=== PATIENT | female | born 1975 ===

== ENCOUNTER 2017-05-16 01:36 | Inpatient (IN) ==
[2017-05-16] MEDS ORDERED: GLUCAGON 1 MG VIAL IM PRN (01:41)
[2017-05-16] MEDS ORDERED: DEXTROSE 50% 25 GM/50 ML VIAL IV PRN (01:41)
[2017-05-16] MEDS ORDERED: ZALEPLON 5 MG CAPSULE PO PRN (01:41)
[2017-05-16] MEDS ORDERED: ONDANSETRON 4 MG/2 ML VIAL IV PRN (01:41)
[2017-05-16] MEDS: SODIUM CHLORIDE 0.9% 1,000 ML IV SCH ×3 (04:41→15:57)
[2017-05-16] MEDS ORDERED: traZODone 50 MG TABLET PO PRN (05:33)
[2017-05-16] MEDS ORDERED: clonazePAM 0.5 MG TABLET PO PRN (05:33)
[2017-05-16] MEDS ORDERED: HYOSCYAMINE 0.125 MG TABLET SL PRN (05:33)
[2017-05-16] MEDS: MORPHINE 2 MG/1 ML SYRINGE IV PRN ×3 (05:35→21:54)
[2017-05-16 06:03] LABS: Basophils % 0.3 % (0.0-0.8); Eosinophils # 0.2 10*3/uL (0.0-0.87); Eosinophils % 1.5 % (0.00-10.9); Hematocrit 30.1 VOL% (35.7-47.0); Hemoglobin 10.5 GM/DL (12.0-16.0); Immature Granulocytes % 0.5 %; Immature Granulocytes Absolute 0.06 #; Lymphocytes # 2.7 10*3/uL (1.4-4.0); Lymphocytes % 24.6 % (21.3-54.2); Mean Corpuscular HGB Conc 34.9 GM/DL (32-36); Mean Corpuscular Hemoglobin 30 PG (27-34); Mean Corpuscular Volume 85.5 FL (87-102); Mean Platelet Volume 10.9 FL (9.6-12.0); Monocytes # 0.8 10*3/uL (0.11-0.8); Monocytes % 7.1 % (1.7-12.7); Neutrophils # 7.3 10*3/uL (1.4-7.4); Platelet Count 138 T/CUMM (130-400); Red Blood Count 3.52 MC/CUMM (3.8-5.5); Red Cell Distribution Width 14.1 % (9.3-17.3)
[2017-05-16 06:27] LABS: Giant Platelets Few; Hypochromasia 1+; Platelet Estimate Normal
[2017-05-16 06:28] LABS: Ovalocytes Slight
[2017-05-16 06:41] LABS: Alanine Aminotransferase 22 U/L (13-56); Albumin 2.2 G/DL (3.4-5.0); Alkaline Phosphatase 114 U/L (45-117); Aspartate Amino Transferase 99 U/L (0-37); Bilirubin,Total < 0.39 MG/DL (0.2-1.0); Blood Urea Nitrogen 12 MG/DL (7-18); Calcium 7.5 MG/DL (8.5-10.1); Glucose 172 MG/DL (74-106); Osmolality,Calculated 280.5 MOS/KG (273-304); Potassium 3.8 MMOL/L (3.5-5.1); Sodium 139 MMOL/L (136-145); Total Protein 5.4 G/DL (6.4-8.3)
[2017-05-16] MEDS: FLUoxetine 20 MG CAPSULE PO SCH (09:38)
[2017-05-16] MEDS: INSULIN LISPRO 100 UNIT/ML SUBCUT SCH ×3 (09:38→16:57)
[2017-05-16] MEDS: PANTOPRAZOLE 40 MG TABLET PO SCH ×2 (09:38→21:49)
[2017-05-16] MEDS: MEROPENEM 1,000 MG in SYRINGE 1 EACH IV SCH ×2 (10:01→15:54)
[2017-05-16 11:00] LABS: Apearance,Urine CLOUDY (Clear); Bilirubin,Urine Negative (Negative); Blood, Urine Small mg/dL (Negative); Glucose,Urine (UA) >=500 mg/dL (Negative); Ketones,Urine Negative (Negative); Mucus,Urine Occasional /LPF (Occasional); Nitrite,Urine Negative (Negative); Protein,Urine >=500 MG/DL; RBC,Urine 16 /HPF (0-4); Squamous Epithelial Cell,Urine Occasional /HPF (0-10); Urine Color Amber (Yellow); Urine Specific Gravity 1.021 (1.001-1.035); WBC,Urine 1153 /HPF (0-6)
[2017-05-16] MEDS: CLINDAMYCIN INJ 600 MG in PREMIX 1 EACH IV SCH ×2 (13:03→19:42)
[2017-05-16] MEDS ORDERED: SEVOFLURANE 1 UNIT/15 MINUTE INH ONE (14:27)
[2017-05-16] MEDS ORDERED: MIDAZOLAM 2 MG/2 ML VIAL ONE (14:27)
[2017-05-16] MEDS ORDERED: PROPOFOL 200 MG/20 ML VIAL IV ONE (14:27)
[2017-05-16] MEDS ORDERED: KETOROLAC 30 MG/1 ML VIAL ONE (14:27)
[2017-05-16] MEDS ORDERED: ONDANSETRON 4 MG/2 ML VIAL ONE (14:27)
[2017-05-16] MEDS ORDERED: fentaNYL 100 MCG/2 ML VIAL ONE ×2 (14:27→14:33)
[2017-05-16] MEDS ORDERED: INSULIN GLARGINE 100 UNIT/ML SUBCUT SCH (21:00)
[2017-05-16] MEDS: LATANOPROST 0.005% OPH SOLN 2.5 ML BOTTLE BOTH EYES SCH (21:49)
[2017-05-16] MEDS: AMITRIPTYLINE 25 MG TABLET PO SCH (21:49)
[2017-05-17] MEDS: SODIUM CHLORIDE 0.9% 1,000 ML IV SCH ×4 (00:45→20:08)
[2017-05-17] MEDS: MEROPENEM 1,000 MG in SYRINGE 1 EACH IV SCH ×3 (00:45→17:37)
[2017-05-17] MEDS: CLINDAMYCIN INJ 600 MG in PREMIX 1 EACH IV SCH ×3 (04:01→20:08)
[2017-05-17 05:31] LABS: Basophils % 0.2 % (0.0-0.8); Eosinophils # 0.1 10*3/uL (0.0-0.87); Eosinophils % 1.4 % (0.00-10.9); Hemoglobin 10.1 GM/DL (12.0-16.0); Immature Granulocytes % 0.6 %; Immature Granulocytes Absolute 0.06 #; Lymphocytes # 1.4 10*3/uL (1.4-4.0); Lymphocytes % 13.9 % (21.3-54.2); Mean Corpuscular HGB Conc 32.6 GM/DL (32-36); Mean Corpuscular Hemoglobin 29 PG (27-34); Mean Corpuscular Volume 89.6 FL (87-102); Mean Platelet Volume 11.3 FL (9.6-12.0); Monocytes # 0.7 10*3/uL (0.11-0.8); Neutrophils # 7.5 10*3/uL (1.4-7.4); Neutrophils % 76.9 % (38.7-73.9); Platelet Count 135 T/CUMM (130-400); Red Blood Count 3.46 MC/CUMM (3.8-5.5); Red Cell Distribution Width 14.2 % (9.3-17.3); White Blood Count 9.8 T/CUMM (4-12)
[2017-05-17 05:55] LABS: Calcium 7.3 MG/DL (8.5-10.1); Osmolality,Calculated 284.1 MOS/KG (273-304); Potassium 3.8 MMOL/L (3.5-5.1)
[2017-05-17] MEDS: MORPHINE 2 MG/1 ML SYRINGE IV PRN ×2 (09:17→22:23)
[2017-05-17] MEDS: PANTOPRAZOLE 40 MG TABLET PO SCH ×2 (09:19→20:07)
[2017-05-17] MEDS: FLUoxetine 20 MG CAPSULE PO SCH (09:19)
[2017-05-17] MEDS: INSULIN LISPRO 100 UNIT/ML SUBCUT SCH ×3 (09:19→17:29)
[2017-05-17] MEDS: AMITRIPTYLINE 25 MG TABLET PO SCH (20:08)
[2017-05-17] MEDS: LATANOPROST 0.005% OPH SOLN 2.5 ML BOTTLE BOTH EYES SCH (20:08)
[2017-05-17] MEDS ORDERED: INSULIN GLARGINE 100 UNIT/ML SUBCUT SCH (21:00)
[2017-05-18] MEDS: MEROPENEM 1,000 MG in SYRINGE 1 EACH IV SCH ×2 (00:51→09:47)
[2017-05-18] MEDS: CLINDAMYCIN INJ 600 MG in PREMIX 1 EACH IV SCH ×2 (03:15→12:28)
[2017-05-18 05:11] LABS: Basophils % 0.5 % (0.0-0.8); Eosinophils # 0.2 10*3/uL (0.0-0.87); Eosinophils % 2.6 % (0.00-10.9); Hematocrit 31.5 VOL% (35.7-47.0); Hemoglobin 10.1 GM/DL (12.0-16.0); Immature Granulocytes % 0.4 %; Immature Granulocytes Absolute 0.03 #; Lymphocytes # 2.3 10*3/uL (1.4-4.0); Lymphocytes % 29.7 % (21.3-54.2); Mean Corpuscular HGB Conc 32.1 GM/DL (32-36); Mean Corpuscular Hemoglobin 29 PG (27-34); Mean Corpuscular Volume 89.7 FL (87-102); Mean Platelet Volume 11.3 FL (9.6-12.0); Monocytes # 0.7 10*3/uL (0.11-0.8); Monocytes % 8.4 % (1.7-12.7); Neutrophils # 4.5 10*3/uL (1.4-7.4); Neutrophils % 58.4 % (38.7-73.9); Platelet Count 141 T/CUMM (130-400); Red Blood Count 3.51 MC/CUMM (3.8-5.5); Red Cell Distribution Width 14.4 % (9.3-17.3); White Blood Count 7.7 T/CUMM (4-12)
[2017-05-18 05:42] LABS: Calcium 7.6 MG/DL (8.5-10.1); Osmolality,Calculated 290.3 MOS/KG (273-304); Potassium 4.3 MMOL/L (3.5-5.1)
[2017-05-18] MEDS: SODIUM CHLORIDE 0.9% 1,000 ML IV SCH ×2 (06:25→11:18)
[2017-05-18] MEDS: MORPHINE 2 MG/1 ML SYRINGE IV PRN (07:15)
[2017-05-18] MEDS: FLUoxetine 20 MG CAPSULE PO SCH (09:45)
[2017-05-18] MEDS: PANTOPRAZOLE 40 MG TABLET PO SCH (09:45)
[2017-05-18] MEDS: INSULIN LISPRO 100 UNIT/ML SUBCUT SCH ×2 (09:46→12:27)
[2017-05-18 13:16] VITALS: BP 122/78
== END 2017-05-18 15:10 | disposition home or self-care (01) | DRG 394 ==
LOC: N.3E 03:24 → SUATTDRO 03:24
PROVIDERS: ADMIT Hospitalist

== ENCOUNTER 2017-12-31 21:13 | Inpatient (IN) ==
[2017-12-31] MEDS ORDERED: fentaNYL 100 MCG/2 ML VIAL IV STA (22:29)
[2017-12-31] MEDS ORDERED: PROMETHAZINE 25 MG/1 ML VIAL IM PRN (23:21)
[2017-12-31] MEDS ORDERED: NICOTINE 21 MG/24 HR PATCH TRANSDERM PRN (23:21)
[2017-12-31] MEDS ORDERED: diphenhydrAMINE CAP 25 MG CAPSULE PO PRN (23:21)
[2017-12-31] MEDS ORDERED: fentaNYL 100 MCG/2 ML VIAL IV PRN (23:21)
[2017-12-31] MEDS ORDERED: DEXTROSE 50% 25 GM/50 ML VIAL IV PRN (23:31)
[2017-12-31] MEDS ORDERED: GLUCAGON 1 MG VIAL IM PRN (23:31)
[2018-01-01 00:10] LABS: Basophils % 0.3 % (0.0-0.8); Eosinophils # 0.2 10*3/uL (0.0-0.87); Eosinophils % 1.4 % (0.00-10.9); Hematocrit 33.9 VOL% (35.7-47.0); Hemoglobin 11.2 GM/DL (12.0-16.0); Immature Granulocytes % 0.5 %; Immature Granulocytes Absolute 0.06 #; Lymphocytes # 1.9 10*3/uL (1.4-4.0); Lymphocytes % 16.1 % (21.3-54.2); Mean Corpuscular Hemoglobin 30 PG (27-34); Mean Corpuscular Volume 90.2 FL (87-102); Mean Platelet Volume 11.8 FL (9.6-12.0); Monocytes # 1.2 10*3/uL (0.11-0.8); Monocytes % 9.8 % (1.7-12.7); Neutrophils # 8.4 10*3/uL (1.4-7.4); Neutrophils % 71.9 % (38.7-73.9); Platelet Count 137 T/CUMM (130-400); Red Blood Count 3.76 MC/CUMM (3.8-5.5); Red Cell Distribution Width 12.6 % (9.3-17.3); White Blood Count 11.7 T/CUMM (4-12)
[2018-01-01 00:41] LABS: Calcium 7.6 MG/DL (8.5-10.1); Potassium 3.6 MMOL/L (3.5-5.1)
[2018-01-01] MEDS: ONDANSETRON 4 MG/2 ML VIAL IV PRN ×2 (01:37→14:03)
[2018-01-01] MEDS: MORPHINE 4 MG/1 ML VIAL IV PRN ×6 (01:39→23:25)
[2018-01-01] MEDS: INSULIN GLARGINE 100 UNIT/ML SUBCUT SCH ×2 (01:42→21:04)
[2018-01-01] MEDS: SODIUM CHLORIDE 0.9% 1,000 ML IV SCH ×5 (01:43→23:28)
[2018-01-01] MEDS: INSULIN REGULAR 100 UNIT/ML SUBCUT SCH ×5 (01:43→21:04)
[2018-01-01] MEDS ORDERED: INFLUENZA VIRUS VACCINE 0.5 ML SYRINGE IM ONE (02:15)
[2018-01-01] MEDS: VANCOMYCIN INJ 750 MG in SODIUM CHLORIDE 0.9% 250 ML IV SCH ×2 (02:38→13:58)
[2018-01-01 06:24] LABS: Basophils % 0.4 % (0.0-0.8); Eosinophils # 0.2 10*3/uL (0.0-0.87); Eosinophils % 1.7 % (0.00-10.9); Hematocrit 31.8 VOL% (35.7-47.0); Hemoglobin 10.4 GM/DL (12.0-16.0); Immature Granulocytes % 0.5 %; Immature Granulocytes Absolute 0.06 #; Lymphocytes # 1.6 10*3/uL (1.4-4.0); Mean Corpuscular HGB Conc 32.7 GM/DL (32-36); Mean Corpuscular Hemoglobin 29 PG (27-34); Mean Corpuscular Volume 89.1 FL (87-102); Mean Platelet Volume 12.2 FL (9.6-12.0); Monocytes # 1.2 10*3/uL (0.11-0.8); Neutrophils # 8.2 10*3/uL (1.4-7.4); Neutrophils % 72.4 % (38.7-73.9); Platelet Count 146 T/CUMM (130-400); Red Blood Count 3.57 MC/CUMM (3.8-5.5); Red Cell Distribution Width 12.6 % (9.3-17.3); White Blood Count 11.3 T/CUMM (4-12)
[2018-01-01 06:46] LABS: Albumin 1.9 G/DL (3.4-5.0); Bilirubin,Total 0.6 MG/DL (0.2-1.0); Osmolality,Calculated 292.7 MOS/KG (273-304); Potassium 3.5 MMOL/L (3.5-5.1); Total Protein 5.8 G/DL (6.4-8.3)
[2018-01-01] MEDS ORDERED: clonazePAM 0.5 MG TABLET PO PRN (09:00)
[2018-01-01] MEDS: FLUoxetine 20 MG CAPSULE PO SCH (09:27)
[2018-01-01] MEDS: PANTOPRAZOLE 40 MG VIAL IV SCH ×2 (09:28→21:01)
[2018-01-01] MEDS ORDERED: traZODone 50 MG TABLET PO PRN (09:30)
[2018-01-01] MEDS ORDERED: HYOSCYAMINE 0.125 MG TABLET SL PRN (09:30)
[2018-01-01] MEDS ORDERED: LIDOCAINE 1%/EPI INJ 20 ML VIAL ONE (10:27)
[2018-01-01] MEDS ORDERED: BUPIVACAINE MPF 0.25% /EPI 30 ML VIAL ONE (10:27)
[2018-01-01] MEDS ORDERED: PANTOPRAZOLE 40 MG VIAL IV ONE (11:24)
[2018-01-01] MEDS ORDERED: INSULIN LISPRO 100 UNIT/ML SUBCUT SCH (11:30)
[2018-01-01] MEDS ORDERED: MIDAZOLAM 2 MG/2 ML VIAL ONE (12:02)
[2018-01-01] MEDS ORDERED: ONDANSETRON 4 MG/2 ML VIAL ONE ×2 (12:02→12:33)
[2018-01-01] MEDS ORDERED: fentaNYL 100 MCG/2 ML VIAL ONE (12:02)
[2018-01-01] MEDS ORDERED: ROCURONIUM 100 MG/10 ML VIAL IV ONE (12:03)
[2018-01-01] MEDS ORDERED: SUCCINYLCHOLINE 200 MG/10 ML VIAL ONE (12:03)
[2018-01-01] MEDS ORDERED: MORPHINE 10 MG/1 ML VIAL ONE (12:17)
[2018-01-01] MEDS: MORPHINE 10 MG/1 ML VIAL IV PRN ×2 (12:17→12:25)
[2018-01-01] MEDS ORDERED: ONDANSETRON 4 MG/2 ML VIAL IV PRN (12:36)
[2018-01-01] MEDS ORDERED: HYDROmorphone 2 MG/1 ML VIAL IV PRN (13:09)
[2018-01-01 16:24] LABS: Apearance,Urine Slightly Hazy (Clear); Bacteria,Urine Occasional /HPF (Few); Bilirubin,Urine Negative (Negative); Blood, Urine Small mg/dL (Negative); Glucose,Urine (UA) Negative (Negative); Ketones,Urine 5 mg/dL (Negative); Mucus,Urine Occasional /LPF (Occasional); Nitrite,Urine Negative (Negative); Protein,Urine 30 MG/DL; RBC,Urine <1 /HPF (0-4); Squamous Epithelial Cell,Urine Occasional /HPF (0-10); Urine Color Yellow (Yellow); Urine Specific Gravity 1.008 (1.001-1.035); WBC,Urine 5 /HPF (0-6)
[2018-01-01] MEDS ORDERED: AMITRIPTYLINE 25 MG TABLET PO SCH (21:00)
[2018-01-01] MEDS ORDERED: INSULIN GLARGINE 100 UNIT/ML SUBCUT SCH (21:00)
[2018-01-01] MEDS ORDERED: LATANOPROST 0.005% OPH SOLN 2.5 ML BOTTLE BOTH EYES SCH (21:00)
[2018-01-02] MEDS: VANCOMYCIN INJ 750 MG in SODIUM CHLORIDE 0.9% 250 ML IV SCH ×2 (02:20→15:31)
[2018-01-02] MEDS: MORPHINE 4 MG/1 ML VIAL IV PRN ×2 (06:30→12:11)
[2018-01-02] MEDS: ONDANSETRON 4 MG/2 ML VIAL IV PRN ×2 (06:36→12:16)
[2018-01-02] MEDS: INSULIN REGULAR 100 UNIT/ML SUBCUT SCH ×2 (08:26→15:17)
[2018-01-02] MEDS: FLUoxetine 20 MG CAPSULE PO SCH (08:27)
[2018-01-02] MEDS: PANTOPRAZOLE 40 MG VIAL IV SCH (08:28)
[2018-01-02 16:19] VITALS: BP 133/86
== END 2018-01-02 16:25 | disposition home or self-care (01) | DRG 264 ==
LOC: EDBD → EDUNIT# → N.ED 21:13 → N.EDINP 23:21 → N.3E 01-01 00:40

== ENCOUNTER 2018-01-29 06:07 | Inpatient (IN) ==
[2018-01-29] MEDS ORDERED: THIAMINE INJ 100 MG, FOLIC ACID INJ 1 MG, MAGNESIUM SULF INJ 2 GM, MULTIVITAMIN INJ 10 ... IV ONE (06:44)
[2018-01-29 07:09] LABS: Apearance,Urine CLEAR (Clear); Bacteria,Urine Occasional /HPF (Few); Bilirubin,Urine Negative (Negative); Blood, Urine Small mg/dL (Negative); Glucose,Urine (UA) >=500 mg/dL (Negative); Ketones,Urine 80 mg/dL (Negative); Mucus,Urine Occasional /LPF (Occasional); Nitrite,Urine Negative (Negative); Protein,Urine 100 MG/DL; RBC,Urine 1 /HPF (0-4); Squamous Epithelial Cell,Urine Occasional /HPF (0-10); Urine Color Yellow (Yellow); Urine Specific Gravity 1.012 (1.001-1.035); Urine Urobilinogen < 2.0 EU/DL (0.2-1.0); WBC,Urine 2 /HPF (0-6)
[2018-01-29 07:11] LABS: Basophils % 0.3 % (0.0-0.8); Eosinophils # 0.2 10*3/uL (0.0-0.87); Eosinophils % 1.8 % (0.00-10.9); Hematocrit 31.1 VOL% (35.7-47.0); Hemoglobin 9.7 GM/DL (12.0-16.0); Immature Granulocytes % 0.8 %; Immature Granulocytes Absolute 0.08 #; Lymphocytes # 2.7 10*3/uL (1.4-4.0); Lymphocytes % 27.2 % (21.3-54.2); Mean Corpuscular HGB Conc 31.2 GM/DL (32-36); Mean Corpuscular Hemoglobin 28 PG (27-34); Mean Corpuscular Volume 90.7 FL (87-102); Mean Platelet Volume 11.5 FL (9.6-12.0); Monocytes # 0.8 10*3/uL (0.11-0.8); Neutrophils % 61.9 % (38.7-73.9); Platelet Count 135 T/CUMM (130-400); Red Blood Count 3.43 MC/CUMM (3.8-5.5); Red Cell Distribution Width 13.4 % (9.3-17.3); White Blood Count 9.8 T/CUMM (4-12)
[2018-01-29 07:31] LABS: Albumin 2.7 G/DL (3.4-5.0); Bilirubin,Total 0.5 MG/DL (0.2-1.0); Osmolality,Calculated 284.5 MOS/KG (273-304); Potassium 3.6 MMOL/L (3.5-5.1); Total Protein 7.1 G/DL (6.4-8.3)
[2018-01-29] MEDS ORDERED: BUPIVACAINE MPF 0.25% /EPI 30 ML VIAL ONE (08:06)
[2018-01-29] MEDS ORDERED: LIDOCAINE 2% TOP JELLY 20 ML VIAL INTRAURETH ONE (08:06)
[2018-01-29] MEDS ORDERED: ENOXAPARIN 40 MG/0.4 ML SYRINGE SUBCUT SCH (09:00)
[2018-01-29] MEDS ORDERED: INFLUENZA VIRUS VACCINE 0.5 ML SYRINGE IM ONE (10:00)
[2018-01-29] MEDS ORDERED: GLUCAGON 1 MG VIAL IM PRN (10:33)
[2018-01-29] MEDS ORDERED: traZODone 50 MG TABLET PO PRN (10:33)
[2018-01-29] MEDS ORDERED: DEXTROSE 50% 25 GM/50 ML VIAL IV PRN (10:33)
[2018-01-29] MEDS ORDERED: clonazePAM 0.5 MG TABLET PO PRN (10:33)
[2018-01-29] MEDS ORDERED: PROMETHAZINE 25 MG/1 ML VIAL IM PRN (10:33)
[2018-01-29] MEDS ORDERED: HYOSCYAMINE 0.125 MG TABLET SL PRN (10:33)
[2018-01-29] MEDS ORDERED: ONDANSETRON 4 MG/2 ML VIAL IV PRN (10:33)
[2018-01-29] MEDS: HYDROmorphone 2 MG/1 ML VIAL IV PRN ×2 (11:39→20:07)
[2018-01-29] MEDS: PANTOPRAZOLE 40 MG TABLET PO SCH ×2 (12:00→21:27)
[2018-01-29] MEDS: FLUoxetine 20 MG CAPSULE PO SCH (12:01)
[2018-01-29] MEDS: SULFAMETHOX/TRIMETHOPRIM 800-160 MG TABLET PO SCH ×2 (12:01→21:27)
[2018-01-29] MEDS: INSULIN REGULAR 100 UNIT/ML SUBCUT SCH ×3 (12:02→21:31)
[2018-01-29] MEDS ORDERED: PROPOFOL 200 MG/20 ML VIAL IV ONE (14:11)
[2018-01-29] MEDS ORDERED: fentaNYL 100 MCG/2 ML VIAL ONE (14:11)
[2018-01-29] MEDS ORDERED: MIDAZOLAM 2 MG/2 ML VIAL ONE ×2 (14:11→14:17)
[2018-01-29] MEDS ORDERED: SODIUM CHLORIDE 0.9% 250 ML IV ONE (14:11)
[2018-01-29] MEDS ORDERED: chlordiazePOXIDE 10 MG CAPSULE PO PRN (14:22)
[2018-01-29] MEDS: NICOTINE 14 MG/24 HR PATCH TRANSDERM SCH (16:38)
[2018-01-29] MEDS: LACTATED RINGERS 1,000 ML IV SCH ×2 (17:12→20:09)
[2018-01-29] MEDS ORDERED: INSULIN GLARGINE 100 UNIT/ML SUBCUT SCH (21:00)
[2018-01-29] MEDS: AMITRIPTYLINE 25 MG TABLET PO SCH (21:27)
[2018-01-29] MEDS: INSULIN GLARGINE 100 UNIT/ML SUBCUT SCH (21:31)
[2018-01-29] MEDS: LATANOPROST 0.005% OPH SOLN 2.5 ML BOTTLE BOTH EYES SCH (21:35)
[2018-01-30] MEDS: LACTATED RINGERS 1,000 ML IV SCH ×3 (02:05→07:54)
[2018-01-30] MEDS: ENOXAPARIN 40 MG/0.4 ML SYRINGE SUBCUT SCH (03:16)
[2018-01-30] MEDS: HYDROmorphone 2 MG/1 ML VIAL IV PRN ×4 (03:20→23:38)
[2018-01-30 05:18] LABS: Basophils % 0.5 % (0.0-0.8); Eosinophils # 0.3 10*3/uL (0.0-0.87); Eosinophils % 5.2 % (0.00-10.9); Hematocrit 28.3 VOL% (35.7-47.0); Hemoglobin 9.3 GM/DL (12.0-16.0); Immature Granulocytes % 0.3 %; Immature Granulocytes Absolute 0.02 #; Lymphocytes # 2.6 10*3/uL (1.4-4.0); Mean Corpuscular HGB Conc 32.9 GM/DL (32-36); Mean Corpuscular Hemoglobin 29 PG (27-34); Mean Corpuscular Volume 88.2 FL (87-102); Mean Platelet Volume 11.4 FL (9.6-12.0); Monocytes # 0.3 10*3/uL (0.11-0.8); Monocytes % 5.2 % (1.7-12.7); Neutrophils # 2.8 10*3/uL (1.4-7.4); Neutrophils % 45.8 % (38.7-73.9); Platelet Count 156 T/CUMM (130-400); Red Blood Count 3.21 MC/CUMM (3.8-5.5); Red Cell Distribution Width 13.4 % (9.3-17.3)
[2018-01-30 05:51] LABS: Calcium 8.3 MG/DL (8.5-10.1); Osmolality,Calculated 282.8 MOS/KG (273-304); Potassium 3.5 MMOL/L (3.5-5.1)
[2018-01-30] MEDS: PANTOPRAZOLE 40 MG TABLET PO SCH ×2 (09:49→21:20)
[2018-01-30] MEDS: SULFAMETHOX/TRIMETHOPRIM 800-160 MG TABLET PO SCH ×2 (09:49→21:19)
[2018-01-30] MEDS: FLUoxetine 20 MG CAPSULE PO SCH (09:50)
[2018-01-30] MEDS: NICOTINE 14 MG/24 HR PATCH TRANSDERM SCH (09:55)
[2018-01-30] MEDS: INSULIN REGULAR 100 UNIT/ML SUBCUT SCH ×4 (10:37→21:20)
[2018-01-30] MEDS: POLYETHYLENE GLYCOL POWDER 17 GM PACK PO SCH (21:18)
[2018-01-30] MEDS: LATANOPROST 0.005% OPH SOLN 2.5 ML BOTTLE BOTH EYES SCH (21:18)
[2018-01-30] MEDS: INSULIN GLARGINE 100 UNIT/ML SUBCUT SCH (21:20)
[2018-01-30] MEDS: AMITRIPTYLINE 25 MG TABLET PO SCH (21:20)
[2018-01-31] MEDS: ENOXAPARIN 40 MG/0.4 ML SYRINGE SUBCUT SCH (01:58)
[2018-01-31] MEDS: HYDROmorphone 2 MG/1 ML VIAL IV PRN ×3 (05:36→21:04)
[2018-01-31] MEDS ORDERED: LIDOCAINE 1% 5 ML VIAL ONE (07:34)
[2018-01-31] MEDS ORDERED: PROPOFOL 200 MG/20 ML VIAL IV ONE (07:34)
[2018-01-31] MEDS: FLUoxetine 20 MG CAPSULE PO SCH (09:11)
[2018-01-31] MEDS: buPROPion SR 100 MG TABLET PO SCH (09:11)
[2018-01-31] MEDS: INSULIN REGULAR 100 UNIT/ML SUBCUT SCH ×4 (09:12→21:12)
[2018-01-31] MEDS: NICOTINE 14 MG/24 HR PATCH TRANSDERM SCH (09:12)
[2018-01-31] MEDS: PANTOPRAZOLE 40 MG VIAL IV SCH ×2 (09:12→21:07)
[2018-01-31] MEDS: POLYETHYLENE GLYCOL POWDER 17 GM PACK PO SCH ×2 (09:57→21:07)
[2018-01-31] MEDS: SULFAMETHOX/TRIMETHOPRIM 800-160 MG TABLET PO SCH ×2 (09:57→21:06)
[2018-01-31] MEDS: AMITRIPTYLINE 25 MG TABLET PO SCH (21:07)
[2018-01-31] MEDS: LATANOPROST 0.005% OPH SOLN 2.5 ML BOTTLE BOTH EYES SCH (21:07)
[2018-01-31] MEDS: INSULIN GLARGINE 100 UNIT/ML SUBCUT SCH (21:12)
[2018-02-01] MEDS: INSULIN REGULAR 100 UNIT/ML SUBCUT SCH ×4 (07:44→20:00)
[2018-02-01] MEDS: POLYETHYLENE GLYCOL POWDER 17 GM PACK PO SCH ×2 (09:53→20:09)
[2018-02-01] MEDS: buPROPion SR 100 MG TABLET PO SCH (09:53)
[2018-02-01] MEDS: FLUoxetine 20 MG CAPSULE PO SCH (09:53)
[2018-02-01] MEDS: NICOTINE 14 MG/24 HR PATCH TRANSDERM SCH (09:54)
[2018-02-01] MEDS ORDERED: INFLUENZA VIRUS VACCINE 0.5 ML SYRINGE IM ONE (10:00)
[2018-02-01] MEDS: CLINDAMYCIN 300 MG CAPSULE PO SCH ×3 (11:45→23:54)
[2018-02-01] MEDS: METOCLOPRAMIDE 10 MG/10 ML UDCUP PO SCH ×3 (11:45→20:06)
[2018-02-01] MEDS: PANTOPRAZOLE 40 MG TABLET PO SCH (18:30)
[2018-02-01] MEDS: INSULIN GLARGINE 100 UNIT/ML SUBCUT SCH (20:01)
[2018-02-01] MEDS: LATANOPROST 0.005% OPH SOLN 2.5 ML BOTTLE BOTH EYES SCH (20:06)
[2018-02-01] MEDS: AMITRIPTYLINE 25 MG TABLET PO SCH (20:06)
[2018-02-02] MEDS: PANTOPRAZOLE 40 MG TABLET PO SCH (06:38)
[2018-02-02] MEDS: CLINDAMYCIN 300 MG CAPSULE PO SCH ×2 (06:38→13:28)
[2018-02-02] MEDS: INSULIN REGULAR 100 UNIT/ML SUBCUT SCH ×2 (09:11→12:47)
[2018-02-02] MEDS ORDERED: POLYETHYLENE GLYCOL POWDER 255 GM BOTTLE PO ONE (10:15)
[2018-02-02] MEDS: FLUoxetine 20 MG CAPSULE PO SCH (10:18)
[2018-02-02] MEDS: buPROPion SR 100 MG TABLET PO SCH (10:19)
[2018-02-02] MEDS: NICOTINE 14 MG/24 HR PATCH TRANSDERM SCH (10:19)
[2018-02-02] MEDS: METOCLOPRAMIDE 10 MG/10 ML UDCUP PO SCH ×2 (10:19→13:28)
[2018-02-02] MEDS: POLYETHYLENE GLYCOL POWDER 17 GM PACK PO SCH (10:19)
[2018-02-02 11:54] VITALS: BP 125/87
[2018-02-02] MEDS ORDERED: DOCUSATE SODIUM 100 MG CAPSULE PO SCH (21:00)
== END 2018-02-02 16:07 | disposition home or self-care (01) | DRG 638 ==
LOC: EDUNIT# → EDBD → N.ED 06:07 → N.3E 07:48 → N.EDINP 08:45 → N.3E 09:36
PROVIDERS: ADMIT Surgery; ATTEND Surgery

== ENCOUNTER 2018-08-15 12:41 | Inpatient (IN) ==
[2018-08-15] MEDS ORDERED: ONDANSETRON 4 MG/2 ML VIAL IV STA (12:56)
[2018-08-15] MEDS ORDERED: VANCOMYCIN INJ 1,000 MG in SODIUM CHLORIDE 0.9% 250 ML IV STA (12:56)
[2018-08-15] MEDS ORDERED: HYDROmorphone 2 MG/1 ML VIAL IV STA (12:56)
[2018-08-15] MEDS ORDERED: DEXTROSE 50% 25 GM/50 ML SYRINGE IV ONE ×2 (13:41→15:07)
[2018-08-15 13:48] LABS: Basophils % 0.5 % (0.0-0.8); Eosinophils # 0.2 10*3/uL (0.0-0.87); Eosinophils % 2.6 % (0.00-10.9); Hematocrit 29.9 VOL% (35.7-47.0); Hemoglobin 9.6 GM/DL (12.0-16.0); Immature Granulocytes % 0.5 %; Immature Granulocytes Absolute 0.04 #; Lymphocytes % 24.7 % (21.3-54.2); Mean Corpuscular HGB Conc 32.1 GM/DL (32-36); Mean Corpuscular Volume 90.1 FL (87-102); Mean Platelet Volume 10.6 FL (9.6-12.0); Monocytes % 7.7 % (1.7-12.7); Platelet Count 195 T/CUMM (130-400); Red Blood Count 3.32 MC/CUMM (3.8-5.5); White Blood Count 8.1 T/CUMM (4-12)
[2018-08-15] MEDS ORDERED: DEXTROSE 50% 25 GM/50 ML VIAL IV STA ×2 (13:49→15:10)
[2018-08-15 14:09] LABS: Calcium 8.9 MG/DL (8.5-10.1)
[2018-08-15 14:51] LABS: Sedimentation Rate-Westergren 111 MM/HR (0-20)
[2018-08-15] MEDS ORDERED: ACETAMINOPHEN 325 MG TABLET PO PRN (14:53)
[2018-08-15] MEDS ORDERED: DOCUSATE SODIUM 100 MG CAPSULE PO PRN (14:53)
[2018-08-15] MEDS ORDERED: NICOTINE 21 MG/24 HR PATCH TRANSDERM PRN (14:53)
[2018-08-15] MEDS ORDERED: ONDANSETRON 4 MG/2 ML VIAL IV PRN (14:53)
[2018-08-15] MEDS ORDERED: DEXTROSE 10% 250 ML IV ONE (15:13)
[2018-08-15] MEDS ORDERED: DEXTROSE 50% 25 GM/50 ML VIAL IV PRN (15:14)
[2018-08-15] MEDS ORDERED: GLUCAGON 1 MG VIAL IM PRN (15:14)
[2018-08-15 16:08] LABS: Thyroid Stimulating Hormone 1.21 uIU/ml (0.358-3.74)
[2018-08-15] MEDS ORDERED: ETANERCEPT 50 MG SUBCUT SCH (16:12)
[2018-08-15] MEDS ORDERED: CYCLOBENZAPRINE 10 MG TABLET PO PRN (16:12)
[2018-08-15] MEDS: DEXTROSE 10% 1,000 ML IV SCH (16:55)
[2018-08-15] MEDS: INSULIN LISPRO 100 UNIT/ML SUBCUT SCH ×2 (16:57→20:20)
[2018-08-15] MEDS: PANTOPRAZOLE 40 MG TABLET PO SCH (20:22)
[2018-08-15] MEDS ORDERED: AMITRIPTYLINE 25 MG TABLET PO SCH (21:00)
[2018-08-15 21:14] LABS: Apearance,Urine Slightly Hazy (Clear); Bilirubin,Urine Negative (Negative); Blood, Urine Negative (Negative); Glucose,Urine (UA) >=500 mg/dL (Negative); Hyaline Casts,Urine 3 /LPF (0-3); Ketones,Urine Negative (Negative); Mucus,Urine Occasional /LPF (Occasional); Nitrite,Urine Negative (Negative); Protein,Urine 100 MG/DL; RBC,Urine 2 /HPF (0-4); Squamous Epithelial Cell,Urine Occasional /HPF (0-10); Urine Color Yellow (Yellow); Urine Specific Gravity 1.014 (1.001-1.035); Urine Urobilinogen < 2.0 EU/DL (0.2-1.0); WBC,Urine 54 /HPF (0-6)
[2018-08-16 05:04] LABS: Basophils % 0.5 % (0.0-0.8); Eosinophils # 0.2 10*3/uL (0.0-0.87); Eosinophils % 2.6 % (0.00-10.9); Hematocrit 27.3 VOL% (35.7-47.0); Hemoglobin 8.9 GM/DL (12.0-16.0); Immature Granulocytes % 0.3 %; Immature Granulocytes Absolute 0.02 #; Lymphocytes % 25.7 % (21.3-54.2); Mean Corpuscular HGB Conc 32.6 GM/DL (32-36); Mean Corpuscular Volume 88.9 FL (87-102); Mean Platelet Volume 11.3 FL (9.6-12.0); Monocytes % 8.5 % (1.7-12.7); Neutrophils % 62.4 % (38.7-73.9); Platelet Count 197 T/CUMM (130-400); Red Blood Count 3.07 MC/CUMM (3.8-5.5); White Blood Count 7.6 T/CUMM (4-12)
[2018-08-16 05:28] LABS: Albumin 2.4 G/DL (3.4-5.0); Bilirubin,Total 0.4 MG/DL (0.2-1.0); Calcium 8.3 MG/DL (8.5-10.1); Osmolality,Calculated 286.4 MOS/KG (273-304); Total Protein 6.2 G/DL (6.4-8.3)
[2018-08-16] MEDS: INSULIN LISPRO 100 UNIT/ML SUBCUT SCH ×2 (07:32→11:31)
[2018-08-16] MEDS ORDERED: LIDOCAINE 1% 20 ML VIAL ONE (08:50)
[2018-08-16] MEDS ORDERED: LACTATED RINGERS 1,000 ML IV SCH (09:00)
[2018-08-16] MEDS ORDERED: FLUoxetine 20 MG CAPSULE PO SCH (09:00)
[2018-08-16] MEDS ORDERED: PREGABALIN 75 MG CAPSULE PO SCH (09:00)
[2018-08-16] MEDS ORDERED: SEVOFLURANE 1 UNIT/15 MINUTE INH ONE (09:59)
[2018-08-16] MEDS ORDERED: PROPOFOL 200 MG/20 ML VIAL IV ONE (09:59)
[2018-08-16] MEDS ORDERED: MIDAZOLAM 2 MG/2 ML VIAL ONE (10:00)
[2018-08-16] MEDS ORDERED: ePHEDrine 50 MG/ML AMP ONE (10:00)
[2018-08-16] MEDS ORDERED: fentaNYL 100 MCG/2 ML VIAL ONE (10:00)
[2018-08-16] MEDS ORDERED: ONDANSETRON 4 MG/2 ML VIAL ONE (10:00)
[2018-08-16] MEDS ORDERED: PHENYLEPHRINE 1 MG/10 ML SYRINGE IV ONE (10:01)
[2018-08-16] MEDS: MEROPENEM 500 MG in SODIUM CHLORIDE 0.9% 100 ML IV SCH ×2 (10:44→15:16)
[2018-08-16] MEDS: PANTOPRAZOLE 40 MG TABLET PO SCH (10:44)
[2018-08-16] MEDS: DEXTROSE 10% 1,000 ML IV SCH (15:16)
[2018-08-16 15:32] VITALS: BP 122/65
== END 2018-08-16 16:52 | disposition home or self-care (01) | DRG 914 ==
LOC: EDUNIT# → N.ED 12:41 → N.EDINP 14:53 → N.2E 16:11

== ENCOUNTER 2018-09-04 14:12 | Inpatient (IN) ==
[2018-09-04] MEDS ORDERED: DEXTROSE 10% 250 ML BAG IV PRN (16:35)
[2018-09-04] MEDS ORDERED: ONDANSETRON 4 MG/2 ML VIAL IV PRN (16:35)
[2018-09-04] MEDS ORDERED: ACETAMINOPHEN 325 MG TABLET PO PRN (16:35)
[2018-09-04] MEDS ORDERED: PROMETHAZINE 25 MG/1 ML VIAL IM PRN (16:35)
[2018-09-04] MEDS ORDERED: GLUCAGON 1 MG VIAL IM PRN (16:35)
[2018-09-04] MEDS: PANTOPRAZOLE 40 MG TABLET PO SCH (16:59)
[2018-09-04 17:35] LABS: Basophils % 0.6 % (0.0-0.8); Eosinophils # 0.3 10*3/uL (0.0-0.87); Eosinophils % 4.6 % (0.00-10.9); Hematocrit 29.8 VOL% (35.7-47.0); Hemoglobin 9.9 GM/DL (12.0-16.0); Immature Granulocytes % 0.3 %; Immature Granulocytes Absolute 0.02 #; Lymphocytes # 2.1 10*3/uL (1.4-4.0); Lymphocytes % 29.6 % (21.3-54.2); Mean Corpuscular HGB Conc 33.2 GM/DL (32-36); Mean Corpuscular Volume 86.9 FL (87-102); Mean Platelet Volume 11.3 FL (9.6-12.0); Monocytes % 7.6 % (1.7-12.7); Neutrophils % 57.3 % (38.7-73.9); Platelet Count 182 T/CUMM (130-400); Red Blood Count 3.43 MC/CUMM (3.8-5.5); Red Cell Distribution Width 13.1 % (9.3-17.3); White Blood Count 7.1 T/CUMM (4-12)
[2018-09-04 17:52] LABS: Calcium 8.7 MG/DL (8.5-10.1); Osmolality,Calculated 304.8 MOS/KG (273-304)
[2018-09-04] MEDS: INSULIN REGULAR 100 UNIT/ML SUBCUT SCH ×2 (17:59→21:38)
[2018-09-05 05:00] LABS: Basophils % 0.5 % (0.0-0.8); Eosinophils # 0.5 10*3/uL (0.0-0.87); Eosinophils % 8.4 % (0.00-10.9); Hematocrit 27.5 VOL% (35.7-47.0); Hemoglobin 8.9 GM/DL (12.0-16.0); Immature Granulocytes % 0.3 %; Immature Granulocytes Absolute 0.02 #; Lymphocytes # 2.6 10*3/uL (1.4-4.0); Lymphocytes % 45.1 % (21.3-54.2); Mean Corpuscular HGB Conc 32.4 GM/DL (32-36); Mean Corpuscular Volume 88.1 FL (87-102); Mean Platelet Volume 11.2 FL (9.6-12.0); Monocytes % 9.9 % (1.7-12.7); Neutrophils % 35.8 % (38.7-73.9); Platelet Count 163 T/CUMM (130-400); Red Blood Count 3.12 MC/CUMM (3.8-5.5); Red Cell Distribution Width 12.9 % (9.3-17.3); White Blood Count 5.9 T/CUMM (4-12)
[2018-09-05 05:26] LABS: Calcium 8.4 MG/DL (8.5-10.1); Osmolality,Calculated 285.5 MOS/KG (273-304)
[2018-09-05 05:41] LABS: Eosinophils 9 % (0-10); Lymphocytes 55 % (20-55); Platelet Estimate Normal; Segmented Neutrophils 27 % (50-85); Total Cells Counted 100
[2018-09-05] MEDS ORDERED: CYCLOBENZAPRINE 10 MG TABLET PO PRN (06:43)
[2018-09-05] MEDS ORDERED: ETANERCEPT 50 MG SUBCUT SCH (06:45)
[2018-09-05] MEDS: PANTOPRAZOLE 40 MG TABLET PO SCH ×3 (08:27→21:30)
[2018-09-05] MEDS: FLUoxetine 20 MG CAPSULE PO SCH (08:27)
[2018-09-05] MEDS: PREGABALIN 75 MG CAPSULE PO SCH ×3 (08:27→21:30)
[2018-09-05] MEDS: INSULIN REGULAR 100 UNIT/ML SUBCUT SCH ×4 (08:28→21:30)
[2018-09-05] MEDS ORDERED: VANCOMYCIN INJ 1,000 MG in SODIUM CHLORIDE 0.9% 250 ML IV SCH (08:30)
[2018-09-05] MEDS ORDERED: CLINDAMYCIN INJ 900 MG in PREMIX 1 EACH IV SCH (09:00)
[2018-09-05] MEDS ORDERED: GENTAMICIN INJ 80 MG in PREMIX 1 EACH IV SCH (09:00)
[2018-09-05] MEDS ORDERED: VANCOMYCIN INJ 1,000 MG in SODIUM CHLORIDE 0.9% 250 ML IV ONE (09:30)
[2018-09-05] MEDS: GENTAMICIN INJ 300 MG in SODIUM CHLORIDE 0.9% 100 ML IV SCH (10:55)
[2018-09-05] MEDS: VANCOMYCIN INJ 750 MG in SODIUM CHLORIDE 0.9% 250 ML IV SCH (21:31)
[2018-09-06 06:01] LABS: Basophils % 0.7 % (0.0-0.8); Eosinophils # 0.4 10*3/uL (0.0-0.87); Eosinophils % 7.1 % (0.00-10.9); Hematocrit 28.4 VOL% (35.7-47.0); Immature Granulocytes % 0.2 %; Immature Granulocytes Absolute 0.01 #; Lymphocytes # 2.6 10*3/uL (1.4-4.0); Lymphocytes % 46.9 % (21.3-54.2); Mean Corpuscular HGB Conc 31.7 GM/DL (32-36); Mean Corpuscular Volume 89.6 FL (87-102); Mean Platelet Volume 11.6 FL (9.6-12.0); Monocytes % 10.7 % (1.7-12.7); Neutrophils % 34.4 % (38.7-73.9); Platelet Count 160 T/CUMM (130-400); Red Blood Count 3.17 MC/CUMM (3.8-5.5); White Blood Count 5.5 T/CUMM (4-12)
[2018-09-06 06:14] LABS: Calcium 8.4 MG/DL (8.5-10.1)
[2018-09-06 06:26] LABS: Eosinophils 6 % (0-10); Lymphocytes 50 % (20-55); Segmented Neutrophils 38 % (50-85); Total Cells Counted 100
[2018-09-06 06:27] LABS: Hypochromasia 1+; Ovalocytes Slight; Platelet Estimate Adequate
[2018-09-06] MEDS: PANTOPRAZOLE 40 MG TABLET PO SCH (08:17)
[2018-09-06] MEDS: PREGABALIN 75 MG CAPSULE PO SCH (08:17)
[2018-09-06] MEDS: VANCOMYCIN INJ 750 MG in SODIUM CHLORIDE 0.9% 250 ML IV SCH (08:18)
[2018-09-06] MEDS: FLUoxetine 20 MG CAPSULE PO SCH (08:18)
[2018-09-06] MEDS: INSULIN REGULAR 100 UNIT/ML SUBCUT SCH ×2 (09:17→11:14)
[2018-09-06 11:14] VITALS: BP 138/84
[2018-09-06] MEDS: GENTAMICIN INJ 300 MG in SODIUM CHLORIDE 0.9% 100 ML IV SCH (13:00)
== END 2018-09-06 14:17 | disposition home or self-care (01) | DRG 638 ==
LOC: N.3E 15:42
PROVIDERS: ADMIT Surgery; ATTEND Surgery